=== PATIENT | female | born 1965 | race Two or more races ===

== ENCOUNTER 2024-11-17 00:25 | Emergency (ER) | payer MEDICAID, SELFPAY ==
[2024-11-17 00:57] VITALS: BP 163/93; PULSE 92; RESP 18; TEMP 36.8; O2SAT 95
--- NOTE | 2024-11-17 01:03 | PD.EDRME ---
Rapid Medical Screening Exam RME Arrival date/time: 11/17/24 00:25 59-year-old female presents emergency department complaining of epigastric pain with vomiting and generalized weakness. Chief Complaint: Weakness Time Seen by Provider: 11/17/24 00:35 Vital signs: Vital Signs Temperature 98.3 F 11/17/24 00:57 Pulse Rate 92 11/17/24 00:57 Respiratory Rate 18 11/17/24 00:57 Blood Pressure 163/93 H 11/17/24 00:57 Pulse Oximetry (%) 95 11/17/24 00:57 Oxygen Delivery Method Room Air 11/17/24 00:57 Vital signs reviewed by provider: Yes
[2024-11-17] MEDS: ONDANSETRON ODT 4 MG TABRAP PO (01:16)
[2024-11-17] MEDS: MECLIZINE HCL 25 MG TABLET 50 MG PO (01:32)
[2024-11-17] MEDS: MG HYD/AL HYD/SIME (Maalox Reg) SUSP 30 ML UDC PO (01:32)
--- NOTE | 2024-11-17 01:47 | EDNOTE_ITS ---
ED General RME/HPI General Chief complaint: Weakness Stated complaint: Vomit, Weakness, Dizziness Time Seen by Provider: 11/17/24 00:35 Arrival date/time: 11/17/24 00:25 RME / HPI RME / HPI narrative: 11/17/24 00:25 RME: 59-year-old female presents emergency department complaining of epigastric pain with vomiting and generalized weakness. NGUYEN HPI: 59-year-old female with a history of [id number] diabetes, hypertension, chronic sinusitis (polyps) who presents to the emergency department with approximately 2 hours of vertigo that is room spinning with associated nausea vomiting. She denies chest pain or shortness of breath. She has some burning sensation in her epigastrium with the vomiting. She denies epigastric pain. Room spinning vertigo is improved with closing her eyes, worsened with movement, standing, and openning her eyes. Related Data Previous Rx's ?Medication ?Instructions ?Recorded meclizine 50 mg tablet 50 mg PO BID PRN dizziness #10 tabs 11/17/24 ondansetron 4 mg disintegrating 4 mg PO Q8H PRN nausea and 11/17/24 tablet vomiting #14 tabs Allergies Allergy/AdvReac Type Severity Reaction Status Date / Time No Known Allergies Allergy Verified 11/17/24 00:26 Review of Systems Review of Systems Systems Reviewed: All systems reviewed, normal except as documented ED Exam Narrative Physical exam: GENERAL APPEARANCE: AxOx4, generally well-appearing, no acute distress, patient is closing her eyes to alleviate the vertigo HEENT: NC, AT. MMM. EOMI, clear conjunctiva, oropharynx clear. NECK: Supple without lymphadenopathy. No stiffness or restricted ROM. HEART: Normal rate and regular rhythm, normal S1/S1, no m/r/g LUNGS: CTAB, moving air well. No crackles or wheezes are heard. ABDOMEN: Soft, nontender, nondistended with good bowel sounds heard. BACK: No midline C/T/L spine pain or deformity, No CVAT, no obvious deformity. EXTREMITIES: Without cyanosis, clubbing or edema. MUSCULOSKELETAL: FROM of all major joints, no chest tenderness NEUROLOGICAL: Grossly nonfocal. Alert and oriented, moving all 4 extremities. CN not formally tested but appear grossly intact. Observed to ambulate with normal gait. Skin: Warm and dry without any rash. Course Course Course Narrative: Patient noted resolution of symptoms after oral meclizine was able to ambulate in emergency department without neurologic deficits. Quality Measures none Orders Category Date Time Status Fingerstick [Bedside Blood Glucose] NOW Care 11/17/24 01:11 Completed Meclizine HCl [Antivert] Med 11/17/24 01:21 Discontinued 50 mg PO X1 ONE Ondansetron Odt [Zofran Odt] Med 11/17/24 01:02 Discontinued 4 mg PO X1 ONE mg Hyd/Al Hyd/Jitendra Susp [Maalox Susp] Med 11/17/24 01:21 Discontinued 30 ml PO X1 ONE Vital Signs Vital signs: Vital Signs Temperature 98.3 F 11/17/24 00:57 Pulse Rate 92 11/17/24 00:57 Respiratory Rate 18 11/17/24 00:57 Blood Pressure 163/93 H 11/17/24 00:57 Pulse Oximetry (%) 95 11/17/24 00:57 Oxygen Delivery Method Room Air 11/17/24 00:57 SpO2 95% on room air, patient is not hypoxic [facility] Patient data External records reviewed:: [facility] previous records Clinical information provided by:: patient Social determinants that could affect healthcare access:: none Patient has the following chronic illnesses:: Sinusitis, diabetes, hypertension How is presenting disease/condition affected by chronic disease/condition?: exacerbated by Evaluation data The following diagnostics were reviewed and interpreted by me:: other (specify) (Workup not dictated) Lab and/or radiology exams considered but not ordered:: None Interpretation Summary: Not applicable Medications Medications considered but not ordered:: None Medication administrations:: Medication Administration History Discontinued Medications Al Hydrox/Mg Hydrox/Simethicone (Mg Hyd/Al Hyd/Jitendra (Maalox Reg) Susp 30 Ml [facility] [place]) 30 ml PO X1 ONE Stop: 11/17/24 01:22 Last Admin: 11/17/24 01:32 Dose: 30 ml Documented By: FANNY Meclizine HCl (Meclizine Hcl 25 Mg Tablet) 50 mg PO X1 ONE Stop: 11/17/24 01:22 Last Admin: 11/17/24 01:32 Dose: 50 mg Documented By: FANNY Ondansetron HCl (Ondansetron Odt 4 Mg Tabrap) 4 mg PO X1 ONE; Protocol Stop: 11/17/24 01:03 Last Admin: 11/17/24 01:16 Dose: 4 mg Documented By: CVL Above Consultations Consultation(s) initiated? (list below): No Diagnosis Differential Diagnosis ED Complaint MDM: Vertigo, orthostasis, dehydration Most likely diagnosis given after review of the tests above:: See below Admission Indicated Admission indicated?: not indicated Explain why admission is indicated or not indicated:: Symptoms improved with Antivert dizziness agents and patient is otherwise stable with normal neurologic exam. Admission Request Was there a request for admission?: No Disposition Plan Disposition Plan: Discharge Discharge Attestation Discharge Attestation: The patient and all family members were given an opportunity to ask questions a nd understood the discharge instructions. Discharge instructions specifically effects, indications for sooner follow up or return to the emergency department, and the expected course of current diagnosis. Patient condition: Stable Medical Decision Making MDM Narrative MDM Narrative: Ms. Nathen Horton presents to the emergency department with dizziness, nausea vomiting Chaim that is consistent with peripheral vertigo. I suspect she does have some risk for this as she has chronic sinus issues. She otherwise has a normal nonfocal neurologic exam and has complete resolution of symptoms with oral meclizine. She is otherwise well-appearing, now asymptomatic, she is appropriate for outpatient follow-up and workup. Differential Diagnosis Differential Diagnosis: Vertigo, orthostasis, dehydration Discharge Plan Plan Patient Disposition: HOME (Self Care) Prescriptions/Referrals Prescriptions/Med Rec: New ondansetron 4 mg tablet,disintegrating 4 mg PO Q8H PRN (Reason: nausea and vomiting) Qty: 14 0RF meclizine 50 mg tablet 50 mg PO BID PRN (Reason: dizziness) Qty: 10 0RF Problem List Clinical Impression: Vertigo Patient/Caregiver Discharge Instructions Education Materials: Vertigo Medicine Tx, ED Dizziness, Uncertain Cause Additional Instructions: Si los s?ntomas no mejoran, consulte con orellana m?dico de cabecera en 2 o 3 d?as. Puede regresar al servicio de urgencias antes si los s?ntomas empeoran o si nota alg?n problema nuevo que le preocupe. Print Language: Tajik Stand Alone Forms: Amanda Award Info., Patient Portal Info Letter
== END 2024-11-17 03:22 | disposition home or self-care (01) ==
LOC: SERX 02:15
PROVIDERS: Emergency Provider Emergency Medicine; PCP Registered Nurse Community Health; Referring Provider Emergency Medicine
DX: R42 Dizziness and giddiness (principal); E11.9 Type 2 diabetes mellitus without complications; I10 Essential (primary) hypertension; R11.2 Nausea with vomiting, unspecified
CPT/HCPCS: 80053; 81001; 83690; 84484; 85025; 99283; Q0162; A9270